=== PATIENT | female | born 1945 | race Caucasian/White ===

== ENCOUNTER 2020-01-10 16:06 | Emergency (ER) | payer OTHER, SELFPAY ==
[2020-01-10 16:35] VITALS: BP 125/66; PULSE 57; RESP 18; TEMP 36.2; O2SAT 97
[2020-01-10] MEDS: LIDOCAINE HCL 1% LOCAL INJ 20 ML VIAL (18:40)
--- NOTE | 2020-01-10 18:57 | ED.GENADULT ---
HPI - General Adult General Chief complaint: Animal Bite <Orlando Rowe PA-C - Last Filed: 01/10/20 19:03> Stated complaint: dog bite <Orlando Rowe PA-C - Last Filed: 01/10/20 19:03> Time Seen by Provider: 01/10/20 17:29 <Orlando Rowe PA-C - Last Filed: 01/10/20 19:03> Source: patient <Orlando Rowe PA-C - Last Filed: 01/10/20 19:03> Mode of arrival: ambulatory <Orlando Rowe PA-C - Last Filed: 01/10/20 19:03> Limitations: no limitations <Orlando Rowe PA-C - Last Filed: 01/10/20 19:03> History of Present Illness HPI narrative: Patient is a 74-year-old female who presents with laceration of the left lower extremity that occurred earlier today patient was walking past a neighbor's house with 2 dogs ran out of the yard 1 bit her on the left ankle region patient presents with laceration and abrasions patient is unsure as to tetanus status patient notes mild aching pain worse with activity and movement patient notes police were contacted patient on arrival in no distress denies other injuries or complaints <Orlando Rowe PA-C - Last Filed: 01/10/20 19:03> Related Data Home medications: Home Medications Medication Instructions Recorded Confirmed escitalopram oxalate 15 mg DAILY 01/10/20 01/10/20 pravastatin DAILY 01/10/20 <Orlando Rowe PA-C - Last Filed: 01/10/20 19:03> Allergies/adverse reactions: Allergies Allergy/AdvReac Type Severity Reaction Status Date / Time No Known Allergies Allergy Verified 01/10/20 17:26 <Orlando Rowe PA-C - Last Filed: 01/10/20 19:03> Review of Systems Review of Systems: All systems reviewed & are unremarkable except as noted in HPI and below <Orlando Rowe PA-C - Last Filed: 01/10/20 19:03> [facility] Social History Social History: Social History (Updated 01/10/20 @ 18:58 by Orlando Rowe PA-C) Smoking status: Never smoker <Orlando Rowe PA-C - Last Filed: 01/10/20 19:03> Exam Narrative: Exam Narrative: GENERAL: Well-appearing, well-nourished, and in no acute distress. HEAD: Normocephalic, atraumatic. EYES: PERRLA and EOMI. ENT: Nares clear, no rhinorrhea or epistaxis. Mucous membranes moist. EXTREMITIES: Normal range of motion. No edema. SKIN: Warm, dry, no rash. 3 cm gaping laceration of the medial aspect of the left distal huerta just above the ankle several smaller abrasions surrounding NEURO: No focal deficits. Alert and oriented x3. Cranial nerves II through XII grossly intact. Neurovascularly intact PSYCH: Normal mood and affect. <CASI Garrido Last Filed: 01/10/20 19:03> Course Course Emergency Course: Patient with laceration which was cleaned and irrigated with 2 loosely approximated sutures placed to allow open drainage if necessary if infection is to set inpatient with tetanus updated will be placed on antibiotics and will follow with primary care for further evaluation was given reasons to return <CASI Garrido Last Filed: 01/10/20 19:03> Vital Signs Vital signs: Vital Signs Temperature 36.2 C L 01/10/20 16:35 Pulse Rate 57 L 01/10/20 16:35 Respiratory Rate 18 01/10/20 16:35 Blood Pressure 125/66 01/10/20 16:35 Pulse Oximetry 97 01/10/20 16:35 Temperature 36.2 C L 01/10/20 16:35 Pulse Rate 53 L 01/10/20 19:39 Respiratory Rate 18 01/10/20 19:39 Blood Pressure 139/86 01/10/20 19:39 Pulse Oximetry 100 01/10/20 19:39 <CASI Garrido Last Filed: 01/10/20 19:03> Vital Signs Temperature 36.2 C L 01/10/20 16:35 Pulse Rate 57 L 01/10/20 16:35 Respiratory Rate 18 01/10/20 16:35 Blood Pressure 125/66 01/10/20 16:35 Pulse Oximetry 97 01/10/20 16:35 Temperature 36.2 C L 01/10/20 16:35 Pulse Rate 53 L 01/10/20 19:39 Respiratory Rate 18 01/10/20 19:39 Blood Pressure 139/86 01/10/20 19:39 Pulse Oximetry 100 01/10/20 19:39 <Stephanie Jolly,
[2020-01-10] MEDS: TETANUS,DIPHTHERIA,AC PERTUSSIS ADULT (0.5 ML) BOOSTRIX IM (19:15)
[2020-01-10 19:39] VITALS: BP 139/86; PULSE 53; RESP 18; O2SAT 100
--- NOTE | 2020-01-10 19:44 | PC.NURSE ---
wound wrapped by tae monroy prior to departure. gauze and coban in place at time of departure.
== END 2020-01-10 19:44 | disposition home or self-care (01) ==
PROVIDERS: Emergency Provider Emergency Medicine
DX: S81.812A Laceration without foreign body, left lower leg, initial encounter (principal); W54.0XXA Bitten by dog, initial encounter; Z23 Encounter for immunization
CPT/HCPCS: 12002; 90471; 90715; 99283